=== PATIENT | male | born 1960 | race African-American/Black ===

== ENCOUNTER 2020-04-28 13:27 | Emergency (ER) | payer MEDICAID ==
[~2020-04-28] VITALS: Ht 200.7 cm; Wt 72.6 kg
--- NOTE | 2020-04-28 13:50 | NUR ---
ED Nurse Note: Pt sent back to waiting room with his mask on. Pt stable at this time and waiting for a private room. ER charge notified.
[2020-04-28 14:36] VITALS: BP 124/73
[2020-04-28] MEDS ORDERED: Lidocaine 2% Visc 15ml soln ORAL ONE (14:45)
[2020-04-28] MEDS ORDERED: Dicyclomine HCl 10mg/5ml oral soln ORAL ONE (14:45)
[2020-04-28] MEDS ORDERED: Ketorolac 30mg Inj IV ONE (14:45)
[2020-04-28] MEDS ORDERED: Mylanta II UD 30ml ORAL ONE (14:45)
[2020-04-28 15:12] LABS: BASOPHILS % (AUTO) 0.5 % (0.0-2.0); HEMATOCRIT 42.5 % (42.0-52.0); HEMOGLOBIN 13.6 G/DL (14.2-18.0); MEAN CORPUSCULAR VOLUME 92 FL (80-99); MONOCYTES % (AUTO) 4.9 % (1.0-10.0); NEUTROPHILS % (AUTO) 67.6 % (45.0-75.0); PLATELET COUNT 116 K/UL (150-450); RED BLOOD COUNT 4.62 M/UL (4.70-6.10); RED CELL DISTRIBUTION WIDTH 13.9 % (11.6-14.8); WHITE BLOOD COUNT 3.5 K/UL (4.8-10.8)
[2020-04-28 15:25] LABS: ANION GAP 8 mmol/L (5-15); BLOOD UREA NITROGEN 17 mg/dL (7-18); CALCIUM 9.1 MG/DL (8.5-10.1); CARBON DIOXIDE 28 MMOL/L (21-32); CHLORIDE 98 MMOL/L (98-107); CREATININE 1.3 MG/DL (0.55-1.30); POTASSIUM 4.2 MMOL/L (3.5-5.1); SODIUM 134 MMOL/L (136-145)
[2020-04-28 15:29] LABS: ALANINE AMINOTRANSFERASE 30 U/L (12-78); ALBUMIN 3.2 G/DL (3.4-5.0); ALBUMIN/GLOBULIN RATIO 0.7 (1.0-2.7); ALKALINE PHOSPHATASE 47 U/L (46-116); ASPARTATE AMINO TRANSFERASE 68 U/L (15-37); BILIRUBIN,TOTAL 0.2 MG/DL (0.2-1.0)
[2020-04-28] MEDS ORDERED: ZITHROMAX250 MG ORAL (15:51)
[2020-04-28] MEDS ORDERED: DICYCLOMINE HCL10 MG ORAL (15:51)
[2020-04-28] MEDS ORDERED: FAMOTIDINE20 MG ORAL (15:51)
[2020-04-28] MEDS ORDERED: IBUPROFEN600 M1 ORAL (15:51)
[2020-04-28 16:01] VITALS: BP 126/78
--- NOTE | 2020-04-28 16:02 | NUR ---
ER DISCHARGE NOTE: Patient is cleared to be discharged per ERMD, pt is aox4, on room air, with stable vital signs. pt was given dc and prescription instructions, pt was able to verbalize understanding, pt id band and iv site removed without complications. pt is able to ambulate with steady gait. pt took all belongings.
[2020-04-28 16:03] VITALS: BP 126/78
--- NOTE | 2020-04-28 16:22 | Diagnostic Imaging Report ---
Indication: Chest pain Technique: XRAY Chest 1v Comparison: None Findings: Heart size within normal limits. Mediastinal contours appear sharp. There is soft tissue prominence in the region of the aortopulmonary window. There is linear opacities in the adjacent left upper lung is no pleural effusion or pneumothorax. No radiographic evidence to suggest pulmonary edema. There are degenerative changes in the spine. No acute osseous abnormality. IMPRESSION: Asymmetric opacities in the left upper lung which may represent linear scarring although additional etiologies not excluded. Correlation with the prior exam of the helpful. Slight prominence of the adjacent aortopulmonary window which may be related to lymphadenopathy, ectatic vasculature/aortic aneurysm and/or mass. Recommend further evaluation with CT of the chest with contrast.
--- NOTE | 2020-04-28 17:16 | Emergency Room Report ---
History of Present Illness General Chief Complaint: Diarrhea Source: Patient Present Illness HPI 59-year-old male presents to ED for body aches and diarrhea. Started 1 week ago. states he had a fever. Afebrile in triage. Denies runny nose cough or congestion. Denies sick contacts or recent travel. Denies recent antibiotic use. No other aggravating relieving factors. Denies any other associated symptoms Allergies: Coded Allergies: No Known Allergies (Unverified , 04/28/20) COVID-19 Screening Contact w/high risk pt: No Experienced COVID-19 symptoms?: Yes COVID-19 Testing performed [employer]: No Patient History Past Medical History: none Past Surgical History: none Pertinent Family History: none Social History: Denies: smoking, alcohol use, drug use Immunizations: UTD Reviewed Nursing Documentation: PMH: Agreed; PSxH: Agreed Nursing Documentation-PMH Past Medical History: No History, Except For Review of Systems All Other Systems: negative except mentioned in HPI Physical Exam Vital Signs Date Time Temp Pulse Resp B/P (MAP) Pulse Ox O2 Delivery O2 Flow Rate FiO2 04/28/20 13:39 98.1 88 16 124/73 (90) 95 Room Air Sp02 EP Interpretation: reviewed, normal General Appearance: no apparent distress, alert, GCS 15, non-toxic Head: normocephalic, atraumatic Eyes: bilateral eye normal inspection, bilateral eye PERRL ENT: hearing grossly normal, normal pharynx, no angioedema, normal voice Neck: full range of motion, supple/symm/no masses Respiratory: chest non-tender, lungs clear, normal breath sounds, speaking full sentences Cardiovascular #1: regular rate, rhythm, no edema Cardiovascular #2: 2+ carotid (R), 2+ carotid (L), 2+ radial (R), 2+ radial (L) , 2+ dorsalis pedis (R), 2+ dorsalis pedis (L) Gastrointestinal: normal bowel sounds, non tender, soft, non-distended, no guarding, no rebound Rectal: deferred Genitourinary: normal inspection, no CVA tenderness Musculoskeletal: back normal, normal range of motion, gait/station normal, non- tender Neurologic: alert, motor strength/tone normal, oriented x3, sensory intact, responsive, speech normal Psychiatric: judgement/insight normal, memory normal, mood/affect normal, no suicidal/homicidal ideation Reflexes: 3+ bicep (R), 3+ bicep (L), 3+ tricep (R), 3+ tricep (L), 3+ knee (R) , 3+ knee (L) Skin: no rash Lymphatic: no adenopathy Medical Decision Making Diagnostic Impression: Primary Impression: Gastroenteritis Hospital Course 59 yo M presents to ED c/o diarrhea, bodyaches. fever. differential diagnosis: gastritis, SBO, cholecystits, gastroenteritis Clinical course Patient placed on stretcher. In isolation. I wore full PPE. On nurse monitoring. After initial history and physical I ordered labs, IV fluids, meds Labs - no leukocytosis, electrolytess ok CXR- atelectasis lower lung base I discussed findings with patient. Vitals stable. Labs unremarkable. Patient could have consideration for COVID. Patient will be discharged to home. Recommend to self isolate. Drink plenty of fluids. States he has a PMD. I feel this is a highly complex case requiring extensive working including EKG/ Rhythm strip, Xray/CT/US, Blood/urine lab work, repeat exams while in ED, and administration of strong opiates/narcotics for pain control, admission to hospital or close patient follow up. Diagnosis - gastroenteritis Stable and discharged to home with prescriptions for pepcid, motrin, azithromycin. Followup with PMD. Return to ED if symptoms recur or worsen Last Vital Signs Date Time Temp Pulse Resp B/P (MAP) Pulse Ox O2 Delivery O2 Flow Rate FiO2 04/28/20 16:03 98.1 79 16 126/78 95 Room Air Disposition: HOME, SELF-CARE Condition: Stable Scripts Azithromycin* (ZITHROMAX*) 250 Mg Tablet 250 MG ORAL DAILY, #6 TAB 0 Refills Take two tables once daily for 1 day, then one tablet once daily for 4 days. Prov: Jamey Yao MD 04/28/20 Ibuprofen* (MOTRIN*) 600 Mg Tablet 600 MG ORAL Q8H PRN for FOR PAIN, #30 TAB 0 Refills Prov: Jamey Yao MD 04/28/20 Famotidine* (Pepcid 20mg tablet*) 20 Mg Tablet 20 MG ORAL DAILY, #30 TAB 0 Refills Prov: Jamey Yao MD 04/28/20 Dicyclomine Hcl* (DICYCLOMINE HCL*) 10 Mg Capsule 10 MG ORAL QID, #20 CAP Prov: Jamey Yao MD 04/28/20 Patient Instructions: Viral Gastroenteritis, Adult Additional Instructions: you may have COVID. you need to self-isolate and practice social distancing. frequent hand washing. drink lots of liquids. followup with your PMD. if your symptoms worsen please come back to ED Jamey Yao MD Apr 28, 2020 17:16
== END 2020-04-28 16:00 | disposition home or self-care (01) ==
LOC: EMR 14:34
DX: K52.9 Noninfective gastroenteritis and colitis, unspecified (principal)
CPT/HCPCS: 36415; 71045; 80053; 83690; 85025; 96361; 96374; J1885; J7030; Z7502; 99284